=== PATIENT | female | born 1985 | race Caucasian/White ===

== ENCOUNTER → 2025-01-15 14:23 | Outpatient (REF) | payer BC, SELFPAY | LOC: RAD 14:23 | PROVIDERS: ATTENDING PHYSICIAN Nurse Practitioner | DX: S93.402A Sprain of unspecified ligament of left ankle, initial encounter (principal) | CPT/HCPCS: 73610; 73630 ==

== ENCOUNTER 2025-07-18 13:18 | Emergency (ER) | payer BC, SELFPAY ==
[2025-07-18 13:26] VITALS: BP 138/83
--- NOTE | 2025-07-18 14:09 | ED.GENMED ---
History of Present Illness
General
Chief Complaint: Chest Pain
Time Seen by Provider: 07/18/25 14:09
History of Present Illness
History of Present Illness:
FOCUSED PAST MEDICAL HISTORY
- High blood pressure
REVIEW OF OLD RECORDS
- The patient was seen in the Emergency Department 2021 related to a headache
Note:
CHIEF COMPLAINT(S)
Chest pain
HISTORY OF PRESENT ILLNESS
The patient is a 39-year-old female who presents with chest pain. The onset occurred shortly after waking up around 9 or 9:30 AM. The pain is described as a dull burning sensation localized to the left side of her chest. The pain worsens upon deep
inspiration but does not increase upon palpation of the chest wall. There is no accompanying shortness of breath or leg swelling. The pain was constant during the drive to the facility but is exacerbated by deep breaths. The patient denies any
recent issues leading up to this event and reports that there have been no previous episodes over the past several days to weeks.
PAST MEDICAL AND SURGICAL HISTORY
- The patient reported using control, which was last accessed in the summer.
FAMILY HISTORY
The patients father has a history of deep vein thrombosis and was on warfarin.
SOCIAL HISTORY
The patient reports using control.
REVIEW OF SYSTEMS
- Respiratory: No shortness of breath. The pain worsens on deep inspiration.
PHYSICAL EXAM
General: Alert, no acute distress. Elevated BMI
Skin: Warm, dry.
Head: Normocephalic, atraumatic.
Neck: Supple, trachea midline.
Eyes, Ears, Nose, Mouth, and Throat: Oral mucosa moist.
Cardiovascular: Normal peripheral perfusion, no edema. No significant chest wall tenderness.
Respiratory: Respirations are non-labored, pain aggravated by deep inspiration.
Gastrointestinal: Abdomen nondistended.
Back: Normal range of motion, normal alignment.
Musculoskeletal: Normal range of motion and strength.
Neurological: Alert and oriented to person, place, time, and situation, no focal neurological deficit observed.
Psychiatric: Cooperative, appropriate mood and affect.
PLAN
- Perform D-dimer screening.
- Conduct cardiac blood work, including troponin levels.
- Arrange for a chest X-ray.
- Administer ketorolac intravenously for pain if there is no contraindication, such as renal impairment or potential .
DIFFERENTIAL DIAGNOSIS
The Differential Diagnosis includes, in no particular order and is not limited to:
1. Pulmonary embolism
2. Costochondritis
3. Musculoskeletal chest pain
4. Pleurisy
5. Myocardial infarction
6. Gastroesophageal reflux disease
7. Pericarditis
8. Panic disorder
9. Esophageal spasm
10. Pneumonia
RADIOLOGY
- Chest x-ray obtained
- CT shows no PE but soft tissue density in the mediastinum measuring around 3 centimeter noted
EKG
- Sinus 82, normal axis, nonspecific ST abnormality, no old to compare
LABS
- D-dimer slightly elevated, troponin negative
UPDATE
-SUMMARY OF ENCOUNTER
The patient, a 39-year-old female, presented to the emergency department with chest pain described as a dull burning sensation on the left side. The pain worsened with deep inspiration but not on palpation. Initial evaluation included D-dimer
testing, which showed a slightly high result without technically being outside a normal range. This necessitated further investigation to rule out pulmonary embolism given the family history of deep vein thrombosis. A chest X-ray and EKG were
performed and appeared normal, while cardiac blood work, including troponin levels, was also unremarkable. Ketorolac was administered intravenously for pain, but the patient reported no significant change in her symptoms. To ensure there is no blood
clot, further imaging with a CT scan was planned.
PLAN
Proceed with a CT scan to further evaluate the possibility of a pulmonary embolism given the slightly elevated D-dimer result and the patients symptoms.
INDEPENDENT REVIEW OF LABS AND INTERPRETATION OF TESTS
My independent review of D-dimer is slightly elevated.
My independent interpretation of the chest X-ray shows no acute abnormalities.
My independent interpretation of the EKG shows normal readings.
MEDICATION RECONCILIATION
Administered ketorolac intravenously for pain management during the visit.
MEDICAL DECISION MAKING
-Complexity of Data Reviewed: Differential diagnoses include pulmonary embolism, costochondritis, musculoskeletal chest pain, pleurisy, myocardial infarction, gastroesophageal reflux disease, pericarditis, panic disorder, esophageal spasm, and
pneumonia.
-Data:
Category 1
Lab tests ordered, including cardiac blood work and D-dimer.
Imaging: Chest X-ray and planned CT scan.
EKG reviewed independently.
-Risk:
Consideration of Admission/Observation: Escalation of care including admission/observation was considered given the complexity and risk of the patients presenting complaint. However, ultimately I feel the patient is safe for outpatient management
with close follow up. Reasoning: Work-up reassuring, does not reveal any acute life/organ threatening processes, patients symptoms well controlled upon reevaluation, reexamination is reassuring, vitals are stable, patient agreeable with discharge,
reliable for follow-up.
DIAGNOSIS
Chest pain, unspecified (R07.9)
Mediastinal soft tissue density
Phy Exam
Physical Exam
Physical Exam:
See HPI
Scores
Heart Score for Chest Pain Patients
STEMI patient?: Not applicable
Course
Orders/Labs/Results
Orders:
Orders
07/18/25 13:19
EKG [Electrocardiogram (*1)] Urgent
Reason for Study: Chest Pain
07/18/25 13:20
EKG- Treatment ONCE
07/18/25 14:25
Ketorolac [Toradol] 15 mg IV NOW STA
CR Chest - 2 Views Urgent
Comment:
Reason For Exam: pleuritic CP
07/18/25 14:36
Basic Metabolic Panel Urgent
Complete Blood Count/With Diff Urgent
D-Dimer Urgent
Troponin I Urgent
07/18/25 15:27
CT Chest PE Study Urgent
Comment:
Reason For Exam: pleuritic CP; ddimer slightly high
Abnormal Lab Results
07/18/25
14:36
Hgb 11.9 L g/dL
(12.0-16.0)
MCV 72.0 L fL
(81.0-99.0)
MCH 22.4 L pg
(27.0-31.0)
MCHC 31.1 L g/dL
(33.0-37.0)
RDW 17.0 H %
(11.5-14.5)
D-Dimer 0.56 H ug/mlFEU
(0.00-0.50)
Glucose 107 H mg/dl
(70-99)
07/18/25 14:36
07/18/25 14:36
Vital Signs
Initial and Last Documented VS:
Initial Vital Signs
Temp Pulse Resp BP Pulse Ox
37.0 C 89 22 138/83 100
07/18/25 13:26 07/18/25 13:26 07/18/25 13:26 07/18/25 13:26 07/18/25 13:26
Last Documented Vital Signs
Temp Pulse Resp BP Pulse Ox
37.0 C 84 18 126/72 98
07/18/25 13:26 07/18/25 17:00 07/18/25 15:00 07/18/25 17:00 07/18/25 17:15
*Pulse Oximetry
SaO2: 100
Oxygen Mode of Delivery: Room air
Patient hypoxic: no
*Critical Care Note
Total Time (30-74mins, 75-104mins- exclusive of procedures): Not Applicable
ED Attending Note
-
Portions of this chart may have been created with voice recognition software.� Occasional wrong word or��sound alike� substitutions may have occurred due to the inherent limitations of voice recognition software.
Discharge Plan
Departure
Prescriptions:
No Action
loratadine 10 MG tablet
10 mg PO HS
acetaminophen 325 MG tablet
650 mg PO Q4HPRN PRN (Reason: mild pain) 0RF
ibuprofen 600 MG tablet
600 mg PO Q6HPRN PRN (Reason: moderate pain/cramps) Qty: 60 0RF
doxycycline monohydrate 50 mg Tablet
25 mg PO DAILY
lisinopril 5 mg Tablet
5 mg PO DAILY
norethindrone (contraceptive) [Jencycla] 0.35 mg Tablet
0.35 mg PO DAILY
Referrals:
Marcia Manrique CRNP [Family Provider, Internal Medicine]
Interventions
Interventions:
*Risk Screen - Suicide Last Done: 07/18/25 13:26
*General Assessment Last Done: 07/18/25 13:26
*Neglect/Abuse Screening Last Done: 07/18/25 13:26
*ED- Fall Risk Assessment Last Done: 07/18/25 14:10
*ED COVID-19 Vaccine History Last Done: 07/18/25 14:10
*ED Influenza Vaccine History Last Done: 07/18/25 14:10
ED- Cardiac Assessment Last Done: 07/18/25 14:44
Discharge Date and Time
Print Language: PANAMANIAN
[2025-07-18 14:12] VITALS: BP 126/85
[2025-07-18 14:44] VITALS: BMI 40.6
[2025-07-18 14:48] LABS: Hematocrit 38.3 % (37.0-47.0); Hemoglobin 11.9 g/dL (12.0-16.0); Mean Corp Hgb Conc. 31.1 g/dL (33.0-37.0); Mean Corpuscular Volume 72.0 fL (81.0-99.0); Nucleated Red Blood Cells % 0 %; Platelet Count 382 10^3/uL (130-400); Red Cell Dist. Width 17.0 % (11.5-14.5)
[2025-07-18 15:01] LABS: D-Dimer 0.56 ug/mlFEU (0.00-0.50)
[2025-07-18 15:02] LABS: Blood Urea Nitrogen 11 mg/dl (7-17); Calcium 9.5 mg/dl (8.4-10.2); Carbon Dioxide 27 mmol/L (22-30); Chloride 102 mmol/L (98-107); Estimated Creatinine Clearance > 125 ml/min; Glucose 107 mg/dl (70-99); Sodium 136 mmol/L (135-145); eGFR > 60.00
[2025-07-18 15:03] VITALS: BP 112/68
[2025-07-18] MEDS: TORADOL 15 MG IV (15:08)
[2025-07-18 15:13] LABS: Troponin I < 0.012 ng/ml
[2025-07-18 16:00] VITALS: BP 113/75
[2025-07-18 17:00] VITALS: BP 126/72
[2025-07-18 18:00] VITALS: BP 124/68
== END 2025-07-18 18:23 | disposition home or self-care (01) ==
LOC: EMR 13:18
PROVIDERS: EMERGENCY PHYSICIAN Emergency Medicine; FAMILY PHYSICIAN Nurse Practitioner
DX: R07.81 Pleurodynia (principal)
CPT/HCPCS: 96374; 99285; 71046; 71275; 80048; 84484; 85025; 85379; 93005; Q9967

== ENCOUNTER → 2025-07-29 15:27 | Outpatient (REF) | payer BC, SELFPAY | LOC: HWRAD 15:27 | PROVIDERS: ATTENDING PHYSICIAN Nurse Practitioner | DX: E04.1 Nontoxic single thyroid nodule (principal) | CPT/HCPCS: 76536 ==

== ENCOUNTER → 2025-08-26 12:22 | Outpatient (REF) | payer BC, SELFPAY ==
[2025-08-26 12:46] VITALS: BP 127/84; BP_SYST 97
== END ==
LOC: RADI 12:22
PROVIDERS: ATTENDING PHYSICIAN Nurse Practitioner
DX: E04.1 Nontoxic single thyroid nodule (principal)
CPT/HCPCS: 10005; 88173